=== PATIENT | male | born 1960 | race Caucasian/White ===

== ENCOUNTER 2020-03-11 13:43 | Inpatient (IN) | payer MEDICARE, OTHER ==
[~2020-03-11] VITALS: Ht 167.6 cm; Wt 87.1 kg
[2020-03-11] MEDS ORDERED: ACETAMINOPHEN 325 MG TABLET PO PRN (14:30)
[2020-03-11] MEDS ORDERED: BLOOD SUGAR DIAGNOSTIC 1 EACH STRIP IN ONE (14:30)
[2020-03-11] MEDS ORDERED: LORAZEPAM 0.5 MG TABLET PO PRN (14:30)
[2020-03-11] MEDS ORDERED: TEMAZEPAM 7.5 MG CAPSULE PO PRN (14:30)
[2020-03-11] MEDS ORDERED: MAG HYDROX/AL HYDROX/SIMETH 30 ML UDC PO PRN (14:30)
[2020-03-11 14:48] VITALS: BP 130/84
[2020-03-11] MEDS ORDERED: GABA-534 PO (14:57)
--- NOTE | 2020-03-11 15:00 | NUR ---
GPS ADMISSION NOTE: [facility] ARRIVED ON THIS UNIT AT 1400 VIA WHEELCHAIR WITH EMT ESCORT. PATIENT ADMITTED ON A 5150 HOLD FOR DTO,DTS PER HOLD PATIENT REPORTING THAT HE HE NEEDS TO BE "SENT TO [facility]"CURRENTLY NOT TAKING ANY MEDICATIONS , UPON FACE TO FACE ASSESSMENT PATIENT IS CURRENTLY LYING IN BED AWAKE,A/OX3 HAS NO S/S OR COMPLAINTS OF PAIN. UNKEPT DISHEVELED ADMIT HEARING VOICES AND SEEING THING. PATIENT IS DISPLAYING NO S/S OF APPARENT DISTRESS. PATIENT BREATHING IS UNLABORED WITH EQUAL RISE AND FALL OF THE CHEST. PATIENT IS ALERT AND ORIENTATED X 3 ON ROOM AIR. PATIENT ASSISTED WITH TURING AND REPOSITIONING Q2HR AND PRN FOR COMFORT AND CIRCULATION. PATIENT HAS NO NEEDS AT THIS TIME. PATIENT IS NOTED TO BEING DELUSIONAL, DISHEVELED, DISORGANIZED, GRANDIOSE, COOPERATIVE, AND NEEDS REDIRECTION. PATIENT DENIES SUICIDE IDEATIONS AND HOMICIDAL IDEATIONS AT THIS TIME. PATIENT IS UNDER THE PSYCHIATRIC CARE OF DR. GALLOWAY AND THE MEDICAL CARE OF DR JOLLY PATIENT BELONGINGS WERE INVENTORIED AND CHECKED FOR CONTRABAND. ALL CONTRABAND REMOVED AND STORED IN PATIENT HALLWAY LOCKER. PATIENT ADVANCED DIRECTIVES PREFERENCE, IMMUNIZATIONS QUESTIONER COMPLETED. SKIN ASSESSMENT DONE , PATIENTS RIGHTS HANDBOOK, PATIENT STATED NOT TO NOTIFIED ANYONE OF ADMISSION . PATIENT EDUCATED ON THE USE OF THE CALL AMBRIZ. PATIENT BED SIDE RAILS ARE UP X 2 FOR SAFETY. PATIENT BED IS LOCKED, LOW AND I WILL CONTINUE TO MONITOR THIS PATIENT Q 15 MIN WITH THE HELP OF STAFF TO MAINTAIN SAFETY.
[2020-03-11 16:00] VITALS: BP 120/66
[2020-03-11] MEDS ORDERED: NICO-676 TD (16:12)
[2020-03-11 20:03] VITALS: BP 129/71
[2020-03-11] MEDS: BENZTROPINE MESYLATE (1 MG) 1 MG TABLET PO SCH (20:40)
[2020-03-11] MEDS: DIVALPROEX SODIUM 250 MG TABLET.DR PO SCH (20:40)
[2020-03-11] MEDS: clonazePAM 0.5 MG TABLET PO SCH (20:40)
[2020-03-11] MEDS: HALOPERIDOL 5 MG TABLET PO SCH (20:40)
[2020-03-11] MEDS: TRAZODONE 50 MG TABLET PO SCH (22:03)
[2020-03-12] MEDS: MAGNESIUM HYDROXIDE 30 ML UDC PO PRN ×2 (06:49→21:22)
--- NOTE | 2020-03-12 06:49 | NUR ---
GPS RN NOTE: CONSTIPATION PT. C/O OF CONSTIPATION. ADMINISTERED MILK OF MAGNESIA 30 ML PO PRN ORDERED. WILL CONTINUE TO MONITOR FOR SAFETY AND BEHAVIOR
[2020-03-12 08:00] VITALS: BP 126/82
[2020-03-12 08:05] LABS: ALBUMIN 3.4 g/dL (3.4-5.0); BILIRUBIN,TOTAL 0.4 mg/dL (0.2-1.0); CALCIUM, SERUM 9.6 mg/dL (8.5-10.1); CREATININE 0.9 mg/dL (0.6-1.3); POTASSIUM 4.1 mmol/L (3.5-5.1); TOTAL PROTEIN, SERUM 8.7 g/dL (6.4-8.2)
[2020-03-12 08:34] LABS: CHOLESTEROL 159 mg/dL (<200); HDL CHOLESTEROL 28 mg/dL (40-60); LDL 118 mg/dL (0-99); TRIGLYCERIDES 129 mg/dL (30-150)
[2020-03-12] MEDS: clonazePAM 0.5 MG TABLET PO SCH ×2 (08:44→17:00)
[2020-03-12] MEDS: DIVALPROEX SODIUM 250 MG TABLET.DR PO SCH ×3 (08:44→17:00)
[2020-03-12] MEDS: NICOTINE PATCH (14MG) 14 MG PATCH.TD24 TD SCH (08:44)
[2020-03-12] MEDS: HALOPERIDOL 5 MG TABLET PO SCH ×3 (08:44→17:00)
[2020-03-12] MEDS: BENZTROPINE MESYLATE (1 MG) 1 MG TABLET PO SCH ×3 (08:44→17:00)
--- NOTE | 2020-03-12 08:45 | NUR ---
WOUND CARE CONSULT: PT ADAMANTLY REFUSED SKIN ASSESSMENT. PT NOTED TO BE AGITATED. CURRENT SIRENA SCORE IS 18. WILL SEE PRN.
--- NOTE | 2020-03-12 11:44 | NUR ---
INITIAL DISCHARGE PLAN: Pt wishes to return home [address] [facility] [address]. SW will help form a safe and proper discharge in collaboration with .
[2020-03-12] MEDS: GABAPENTIN 300 MG CAPSULE PO PRN (12:54)
--- NOTE | 2020-03-12 12:54 | NUR ---
RN NOTE :PATIENT C/O ANXIETY MEDICATED WITH ATIVAN 1MG X1 WILL CONTINUE TO MONITOR.
--- NOTE | 2020-03-12 14:44 | NUR ---
INDIVIDUAL INTERVENTION: This SW met patient at bedside. However, the patient was in a position and pt did not engage in conversation with SW. Pt will be invited to participate in the next therapeutic milieu.
[2020-03-12] MEDS ORDERED: POLYETHYLENE GLYCOL 3350 17 GM POWD.PACK PO ONE (15:30)
[2020-03-12] MEDS: METFORMIN 500 MG TABLET PO SCH (17:00)
[2020-03-12 20:26] VITALS: BP 142/61
[2020-03-12] MEDS: TRAZODONE 50 MG TABLET PO SCH (21:16)
--- NOTE | 2020-03-12 21:22 | NUR ---
GPS RN NOTE: CONSTIPATION PT. C/O OF UNABLE CONSTIPATION. ADMINISTERED MILK OF MAGNESIA 30 ML PRN ORDERED. WILL CONTINUE TO MONITOR FOR SAFETY AND BEHAVIOR
[2020-03-13] MEDS ORDERED: MAGNESIUM CITRATE 296 ML BOTTLE PO ONE (06:00)
[2020-03-13 08:00] VITALS: BP 122/74
[2020-03-13] MEDS: clonazePAM 0.5 MG TABLET PO SCH ×2 (08:10→16:55)
[2020-03-13] MEDS: DIVALPROEX SODIUM 250 MG TABLET.DR PO SCH ×3 (08:10→16:55)
[2020-03-13] MEDS: NICOTINE PATCH (14MG) 14 MG PATCH.TD24 TD SCH (08:11)
[2020-03-13] MEDS: HALOPERIDOL 5 MG TABLET PO SCH ×3 (08:11→16:55)
[2020-03-13] MEDS: METFORMIN 500 MG TABLET PO SCH ×2 (08:11→16:56)
[2020-03-13] MEDS: BENZTROPINE MESYLATE (1 MG) 1 MG TABLET PO SCH ×3 (08:11→16:55)
[2020-03-13] MEDS: METHYLPHENIDATE HCL (5MG) 5 MG TABLET PO SCH (10:05)
[2020-03-13 16:00] VITALS: BP 100/54
--- NOTE | 2020-03-13 16:27 | NUR ---
INDIVIDUAL INTERVENTION: This SW met patient at bedside. However, the patient was in a position with his eyes closed and pt did not engage in conversation with SW. Pt will be invited to participate in the next therapeutic milieu.
[2020-03-13 20:27] VITALS: BP 115/73
[2020-03-13] MEDS: TRAZODONE 50 MG TABLET PO SCH (21:45)
[2020-03-14 08:00] VITALS: BP 130/62
[2020-03-14] MEDS: GABAPENTIN 300 MG CAPSULE PO PRN (08:52)
[2020-03-14] MEDS: HALOPERIDOL 5 MG TABLET PO SCH ×3 (08:52→22:12)
[2020-03-14] MEDS: BENZTROPINE MESYLATE (1 MG) 1 MG TABLET PO SCH ×3 (08:52→21:28)
[2020-03-14] MEDS: METHYLPHENIDATE HCL (5MG) 5 MG TABLET PO SCH (08:52)
[2020-03-14] MEDS: METFORMIN 500 MG TABLET PO SCH ×2 (08:52→16:33)
[2020-03-14] MEDS: clonazePAM 0.5 MG TABLET PO SCH ×2 (08:52→16:33)
[2020-03-14] MEDS: DIVALPROEX SODIUM 250 MG TABLET.DR PO SCH ×3 (08:52→16:33)
[2020-03-14] MEDS: NICOTINE PATCH (14MG) 14 MG PATCH.TD24 TD SCH (08:53)
[2020-03-14] MEDS: LACTULOSE 10 G/15 ML UDC (PYXIS) PO PRN ×2 (08:53→20:48)
--- NOTE | 2020-03-14 09:20 | NUR ---
WOUND CARE CONSULT: PT AGREED TO HAVE RT SECOND FINGER SKIN ASSESSMENT DONE. PT NOTED TO HAVE RAISED ABRASION TO FINGER WHICH IS TENDER, PRESENT ON ADMISSION. RECOMMENDATIONS MADE FOR WOUND CARE. DISCUSSED WITH NURSING STAFF. DR RIK EM NOTIFIED FOR SURGICAL CONSULT. WILL SEE PRN. PT IS AMBULATORY AND CONTINENT. IN AGREEMENT WITH PLAN OF CARE. Addendum: 03/14/20 at 921 by DREW BLACKMANDNU Amended: Links added. Addendum: 03/14/20 at 2106 by PETROS ANTOINE RN GPS RN NOTES: PT REPORTS CONSTIPATION, LACTULOSE 30ML GIVEN PO AT 2049 ORDERED. PT WAS SEEN BY DR SHAWN EM BECAUSE PT HAS RIGHT MIDDLE FINGER PAIN DUE TO UNKNOWN GROWTH, AWAITING ORDER FOR X-RAY. PT ALSO COMPLAINED OF GENERALIZED BODY RASH THAT HAS BEEN ON GOING FOR ABOUT 2 YEARS. WILL CONTINUE TO MONITOR AND FOLLOW UP.
[2020-03-14] MEDS: NEOMY SULF/BACITRAC ZN/POLY 15 GM TUBE TP SCH ×2 (12:34→16:34)
[2020-03-14 16:00] VITALS: BP 122/78
[2020-03-14] MEDS ORDERED: HALOPERIDOL 1 MG TABLET PO SCH (17:00)
[2020-03-14] MEDS: TRAZODONE 50 MG TABLET PO SCH (22:12)
[2020-03-15 00:06] VITALS: BP 134/72
[2020-03-15 08:00] VITALS: BP 112/67
[2020-03-15] MEDS: METFORMIN 500 MG TABLET PO SCH ×2 (08:18→16:31)
[2020-03-15] MEDS: HALOPERIDOL 5 MG TABLET PO SCH ×3 (08:19→21:59)
[2020-03-15] MEDS: clonazePAM 0.5 MG TABLET PO SCH ×2 (08:19→16:31)
[2020-03-15] MEDS: BENZTROPINE MESYLATE (1 MG) 1 MG TABLET PO SCH ×3 (08:19→21:59)
[2020-03-15] MEDS: GABAPENTIN 300 MG CAPSULE PO PRN (08:19)
[2020-03-15] MEDS: METHYLPHENIDATE HCL (5MG) 5 MG TABLET PO SCH (08:19)
[2020-03-15] MEDS: DIVALPROEX SODIUM 250 MG TABLET.DR PO SCH ×3 (08:19→16:31)
[2020-03-15] MEDS: NEOMY SULF/BACITRAC ZN/POLY 15 GM TUBE TP SCH ×2 (08:20→16:31)
[2020-03-15] MEDS: NICOTINE PATCH (14MG) 14 MG PATCH.TD24 TD SCH (08:21)
[2020-03-15] MEDS ORDERED: BENZTROPINE MESYLATE (1 MG) 1 MG TABLET PO SCH (09:00)
[2020-03-15] MEDS: LACTULOSE 10 G/15 ML UDC (PYXIS) PO PRN (13:14)
[2020-03-15 16:00] VITALS: BP 108/75
[2020-03-15 20:29] VITALS: BP 124/70
[2020-03-15] MEDS: TRAZODONE 50 MG TABLET PO SCH (21:59)
[2020-03-16 08:00] VITALS: BP 119/74
[2020-03-16] MEDS: BENZTROPINE MESYLATE (1 MG) 1 MG TABLET PO SCH ×3 (08:30→20:17)
[2020-03-16] MEDS: clonazePAM 0.5 MG TABLET PO SCH ×2 (08:30→16:33)
[2020-03-16] MEDS: NICOTINE PATCH (14MG) 14 MG PATCH.TD24 TD SCH (08:30)
[2020-03-16] MEDS: METFORMIN 500 MG TABLET PO SCH ×2 (08:30→16:33)
[2020-03-16] MEDS: METHYLPHENIDATE HCL (5MG) 5 MG TABLET PO SCH (08:30)
[2020-03-16] MEDS: DIVALPROEX SODIUM 250 MG TABLET.DR PO SCH ×3 (08:30→16:33)
[2020-03-16] MEDS: HALOPERIDOL 5 MG TABLET PO SCH ×3 (08:30→21:07)
[2020-03-16] MEDS: NEOMY SULF/BACITRAC ZN/POLY 15 GM TUBE TP SCH ×2 (08:45→16:48)
--- NOTE | 2020-03-16 09:10 | NUR ---
GPS RN NOTE: PATIENT RESTING IN THE BED AWAKE, ALERT, AMBULATORY. ISOLATIVE,CALM AT THIS TIME .NO ACUTE DISTRESS NOTED. COMPLIANT WITH AM MEDICATIONS.DENIES SI/HI ALL NEEDS ATTENDED AND ANTICIPATED. WILL CONTINUE MONITORING Q15 MINS. FOR SAFETY AND BEHAVIOR.
[2020-03-16] MEDS ORDERED: DEXTROSE 50%-WATER 50 ML DISP.SYRIN IV PRN (10:00)
[2020-03-16] MEDS: BLOOD SUGAR DIAGNOSTIC 1 EACH STRIP IN SCH ×3 (11:34→21:08)
[2020-03-16] MEDS: LACTULOSE 10 G/15 ML UDC (PYXIS) PO PRN (12:08)
[2020-03-16 16:00] VITALS: BP 147/84
[2020-03-16 20:19] VITALS: BP 120/70
[2020-03-16] MEDS: TRAZODONE 50 MG TABLET PO SCH (21:07)
[2020-03-16] MEDS: INSULIN REGULAR, HUMAN 100 UNIT/ML 3 ML VIAL SQ PRN (21:09)
[2020-03-17] MEDS: BLOOD SUGAR DIAGNOSTIC 1 EACH STRIP IN SCH ×4 (07:23→21:46)
[2020-03-17] MEDS: INSULIN REGULAR, HUMAN 100 UNIT/ML 3 ML VIAL SQ PRN ×3 (07:40→21:47)
[2020-03-17 08:00] VITALS: BP 139/71
[2020-03-17] MEDS: clonazePAM 0.5 MG TABLET PO SCH ×2 (08:33→16:40)
[2020-03-17] MEDS: NICOTINE PATCH (14MG) 14 MG PATCH.TD24 TD SCH (08:33)
[2020-03-17] MEDS: METFORMIN 500 MG TABLET PO SCH ×2 (08:33→16:40)
[2020-03-17] MEDS: METHYLPHENIDATE HCL (5MG) 5 MG TABLET PO SCH (08:33)
[2020-03-17] MEDS: BENZTROPINE MESYLATE (1 MG) 1 MG TABLET PO SCH ×3 (08:33→16:40)
[2020-03-17] MEDS: DIVALPROEX SODIUM 250 MG TABLET.DR PO SCH ×2 (08:33→12:49)
[2020-03-17] MEDS: HALOPERIDOL 5 MG TABLET PO SCH ×3 (08:33→16:40)
[2020-03-17] MEDS: NEOMY SULF/BACITRAC ZN/POLY 15 GM TUBE TP SCH ×2 (08:34→16:41)
--- NOTE | 2020-03-17 09:00 | NUR ---
RN NOTE- PT IN BED AND AMBULATING ON UNIT, POOR EYE CONTACT THOUGH IONTERACTIVE. INITIATES CONVERSATION W THIS RN, GUARDED PARANOIA PRESENT, DENIES ALL PO INTAKE GOOD MED COMPLIANT NO BEHAVIORAL ISSUES FOCUS ON COLONOSCOPY APPT HE HAD CANCELLED AND CONSTIPATION ISSUES. LAST BM YESTERDAY
--- NOTE | 2020-03-17 14:50 | NUR ---
GROUP THERAPY: SW encouraged pt to attend group therapy on this present day to discuss his discharge plan. Pt is focused on discharged and asked SW when he will be discharged. SW informed him that the MD has not given a discharge order and pt then stated, "I don't want to go to the group." Pt refused to attend group and refused to engage in further conversation.
[2020-03-17 16:00] VITALS: BP 121/76
[2020-03-17 20:51] VITALS: BP 97/48
[2020-03-17 21:43] VITALS: BP 115/62
[2020-03-17] MEDS: DIVALPROEX SODIUM 500 MG TABLET.DR PO SCH (21:44)
[2020-03-17] MEDS: TRAZODONE 50 MG TABLET PO SCH (21:44)
--- NOTE | 2020-03-17 21:49 | NUR ---
GPS RN NOTES: ACCU CHECK DONE WITH BLOOD SUGAR 96. PER SLIDING SCALE, NO INSULIN NEEDED. CONTINUE TO MONITOR.
--- NOTE | 2020-03-18 05:38 | NUR ---
GPS RN NOTES: PAIN PT C/O OF SHOULDER PAIN. PT REQUESTED TYLENOL. VITALS CHECKED WNL. OFFERED TYLENOL 650 MG PO PRN ORDERED. PT AGREED AND TOLERATED MEDICATION WELL. CONTINUE TO MONITOR
[2020-03-18] MEDS: BLOOD SUGAR DIAGNOSTIC 1 EACH STRIP IN SCH ×4 (07:59→21:20)
[2020-03-18 08:00] VITALS: BP 113/64
[2020-03-18] MEDS: METHYLPHENIDATE HCL (5MG) 5 MG TABLET PO SCH (08:39)
[2020-03-18] MEDS: NICOTINE PATCH (14MG) 14 MG PATCH.TD24 TD SCH (08:39)
[2020-03-18] MEDS: clonazePAM 0.5 MG TABLET PO SCH ×2 (08:39→16:59)
[2020-03-18] MEDS: METFORMIN 500 MG TABLET PO SCH ×2 (08:40→16:59)
[2020-03-18] MEDS: NEOMY SULF/BACITRAC ZN/POLY 15 GM TUBE TP SCH ×2 (08:40→17:04)
[2020-03-18] MEDS: BENZTROPINE MESYLATE (1 MG) 1 MG TABLET PO SCH ×3 (08:40→16:59)
[2020-03-18] MEDS: DIVALPROEX SODIUM 250 MG TABLET.DR PO SCH ×2 (08:40→12:24)
[2020-03-18] MEDS: HALOPERIDOL 5 MG TABLET PO SCH ×3 (08:40→16:59)
--- NOTE | 2020-03-18 09:00 | NUR ---
RN NOTE- PT CALM QUIET. ISOLATIVE TO ROOM LESS INTERACTIVE AND LESS INITIATION. DENIES SI HI AH VH PO INTAKE GOOD THIS MORNING MED COMPLIANT
--- NOTE | 2020-03-18 10:48 | NUR ---
RN NOTE- PT W ABRASION ON RT HAND ERYTHEMATOUS AND CRUSTED. PT C/O PAIN. TOPICAL ABX OINTMENT BEING APPLIED BUT APPEARS TO BE WORSENING. ASSOCIATE EDITOR NOTIFIED FOR REEVALUATION
[2020-03-18] MEDS: LACTULOSE 10 G/15 ML UDC (PYXIS) PO PRN (12:23)
[2020-03-18] MEDS: INSULIN REGULAR, HUMAN 100 UNIT/ML 3 ML VIAL SQ PRN ×3 (12:28→21:21)
--- NOTE | 2020-03-18 14:56 | NUR ---
Individual Counseling: This SW met patient in activity room to facilitate individual Counseling regarding Support Systems. The patient was sleeping and not easily roused by verbal cues. Patient will be invited to attend the next therapeutic milieu.
[2020-03-18 16:00] VITALS: BP 107/71
--- NOTE | 2020-03-18 19:25 | NUR ---
GPS RN NOTES RECEIVED PATIENT FROM MORNING SHIFT, ALERT AND ORIENTED X 3 WITH FLAT AFFECT, ISOLATIVE AND WITHDRAWN. VERBALLY RESPONSIVE AND ABLE TO FOLLOW DIRECTIONS. BREATHING REGULAR AND UNLABORED ON ROOM. DENIES SUICIDAL IDEATION OR HALLUCINATION. NO COMPLAINTS OF PAIN/DISCOMFORT REPORTED AT THIS TIME. BED LOW AND LOCKED ON SEMI FOWLERS POSITION. WILL CLOSELY MONITOR FOR SAFETY AND BEHAVIOR.
[2020-03-18 20:00] VITALS: BP 112/66
[2020-03-18] MEDS: GABAPENTIN 300 MG CAPSULE PO PRN (20:05)
[2020-03-18 20:07] VITALS: BP 112/66
--- NOTE | 2020-03-18 20:10 | NUR ---
GPS RN NOTES COMPLAINED OF "TINGLING PAIN" ON HIS HANDS. NEURONTIN 300MG GIVEN BY MOUTH. NON-PHARMACOLOGICAL INTERVENTIONS PROVIDED. WILL CONTINUE TO MONITOR.
[2020-03-18] MEDS: DIVALPROEX SODIUM 500 MG TABLET.DR PO SCH (21:19)
[2020-03-18] MEDS: TRAZODONE 50 MG TABLET PO SCH (21:20)
[2020-03-19 08:00] VITALS: BP 108/67
[2020-03-19] MEDS: BLOOD SUGAR DIAGNOSTIC 1 EACH STRIP IN SCH ×4 (08:25→21:40)
[2020-03-19] MEDS: NEOMY SULF/BACITRAC ZN/POLY 15 GM TUBE TP SCH ×2 (09:07→17:41)
[2020-03-19] MEDS: NICOTINE PATCH (14MG) 14 MG PATCH.TD24 TD SCH (09:13)
[2020-03-19] MEDS: METHYLPHENIDATE HCL (5MG) 5 MG TABLET PO SCH (09:13)
[2020-03-19] MEDS: clonazePAM 0.5 MG TABLET PO SCH ×2 (09:13→17:40)
[2020-03-19] MEDS: GABAPENTIN 300 MG CAPSULE PO PRN (09:14)
[2020-03-19] MEDS: HALOPERIDOL 5 MG TABLET PO SCH ×3 (09:14→17:40)
[2020-03-19] MEDS: DIVALPROEX SODIUM 250 MG TABLET.DR PO SCH ×2 (09:14→12:07)
[2020-03-19] MEDS: METFORMIN 500 MG TABLET PO SCH ×2 (09:14→17:40)
[2020-03-19] MEDS: BENZTROPINE MESYLATE (1 MG) 1 MG TABLET PO SCH ×3 (09:14→17:40)
--- NOTE | 2020-03-19 09:17 | NUR ---
WOUND CARE CONSULT: RE-EVALUATION OF RT 2ND FINGER WHICH IS NOTED TO HAVE REDNESS, RAISED AREA WITH DRIED RED/BROWN DRAINAGE AND TENDERNESS, PRESENT ON ADMISSION. SURGEON ON CASE. MSG LEFT FOR DR RIK EM TO RE-EVALUATE FINGER.
[2020-03-19] MEDS: INSULIN REGULAR, HUMAN 100 UNIT/ML 3 ML VIAL SQ PRN ×3 (09:18→18:01)
[2020-03-19 16:00] VITALS: BP 128/68
[2020-03-19] MEDS: DIVALPROEX SODIUM 500 MG TABLET.DR PO SCH (21:19)
[2020-03-19] MEDS: TRAZODONE 50 MG TABLET PO SCH (21:19)
[2020-03-20] MEDS: MAGNESIUM HYDROXIDE 30 ML UDC PO PRN (06:04)
--- NOTE | 2020-03-20 06:04 | NUR ---
GPS RN NOTE: CONSTIPATION PT. C/O OF CONSTIPATION. ADMINISTERED MILK OF MAGNESIA 30 ML PO PRN ORDERED. WILL CONTINUE TO MONITOR FOR SAFETY AND BEHAVIOR
[2020-03-20] MEDS: BLOOD SUGAR DIAGNOSTIC 1 EACH STRIP IN SCH ×4 (07:30→21:15)
--- NOTE | 2020-03-20 07:36 | NUR ---
GPS/RN-NOTES PATIENT REFUSED ACCU-CHECK DESPITE EXPLANATIONS RISK AND BENEFITS. OFFERED X3
[2020-03-20 08:00] VITALS: BP 113/58
[2020-03-20] MEDS: NEOMY SULF/BACITRAC ZN/POLY 15 GM TUBE TP SCH ×2 (09:00→17:09)
[2020-03-20] MEDS: METFORMIN 500 MG TABLET PO SCH ×2 (09:19→17:08)
[2020-03-20] MEDS: METHYLPHENIDATE HCL (5MG) 5 MG TABLET PO SCH (09:19)
[2020-03-20] MEDS: clonazePAM 0.5 MG TABLET PO SCH ×2 (09:19→17:08)
[2020-03-20] MEDS: NICOTINE PATCH (14MG) 14 MG PATCH.TD24 TD SCH (09:19)
[2020-03-20] MEDS: HALOPERIDOL 5 MG TABLET PO SCH ×3 (09:19→17:08)
[2020-03-20] MEDS: BENZTROPINE MESYLATE (1 MG) 1 MG TABLET PO SCH ×3 (09:19→17:08)
[2020-03-20] MEDS: DIVALPROEX SODIUM 250 MG TABLET.DR PO SCH ×2 (09:19→12:05)
--- NOTE | 2020-03-20 10:16 | NUR ---
County Contact: SW called [facility] and spoke to Krissy ([phone]) who received the pts information and stated that transportation will be arranged for tomorrow. She stated that she will call the SW with a time once the schedule is completed.
--- NOTE | 2020-03-20 14:27 | NUR ---
Group Note/Individual Session: SW encouraged the pt to participate in group therapy and the pt was in the activities room but no one else was participating in group. SW spoke to the pt about his pending discharge for the following day and he stated that he has been wanting to return to his home and felt that his stay at the hospital was unnecessary. SW stated that he has shown improvement through the use of medications and expressed that would not have been possible if he did not get admitted. Pt stated that the SW was right and that he feels like he will be safe in his home and if he is not down the line the pt states that he knows what to do.
[2020-03-20 16:00] VITALS: BP 115/76
[2020-03-20] MEDS: INSULIN REGULAR, HUMAN 100 UNIT/ML 3 ML VIAL SQ PRN (18:18)
[2020-03-20 20:00] VITALS: BP 113/74
--- NOTE | 2020-03-20 20:00 | NUR ---
GPS/RN OPENING NOTES RECEIVED PATIENT , ALERT, ORIENTED, AMBULATORY, ABLE TO VERBALIZED NEEDS, REQUESTING FOR SOME INFORMATION REGARDING DISCHARGE AND MEDICATION LIST UPON DISCHARGE, DISCUSSED THAT IT WILL PROVIDED TO HIM UPON DISCHARGE FOR MEDICATION LIST. RECEIVED ENDORSEMENT FROM AM RN FOR BESS. TO MONITOR PATIENT AND CONTINUE CARE.
[2020-03-20 20:40] VITALS: BP 113/74
[2020-03-20] MEDS: DIVALPROEX SODIUM 500 MG TABLET.DR PO SCH (21:14)
[2020-03-20] MEDS: TRAZODONE 50 MG TABLET PO SCH (21:14)
--- NOTE | 2020-03-20 21:55 | NUR ---
GPS/RN NOTES BLOOD SUGAR CHECK AT 135. PATIENT HAD SNACKS AND REPORTED WILL GO BACK TO SLEEP. NO COVERAGE GIVEN PER PATIENT REQUEST.
[2020-03-21] MEDS: BLOOD SUGAR DIAGNOSTIC 1 EACH STRIP IN SCH ×2 (07:30→12:00)
[2020-03-21 08:00] VITALS: BP 148/53
[2020-03-21] MEDS: clonazePAM 0.5 MG TABLET PO SCH (08:12)
[2020-03-21] MEDS: METHYLPHENIDATE HCL (5MG) 5 MG TABLET PO SCH (08:13)
[2020-03-21] MEDS: HALOPERIDOL 5 MG TABLET PO SCH ×2 (08:13→13:23)
[2020-03-21] MEDS: GABAPENTIN 300 MG CAPSULE PO PRN (08:13)
[2020-03-21] MEDS: DIVALPROEX SODIUM 250 MG TABLET.DR PO SCH ×2 (08:13→13:23)
[2020-03-21] MEDS: BENZTROPINE MESYLATE (1 MG) 1 MG TABLET PO SCH ×2 (08:13→13:23)
[2020-03-21] MEDS: METFORMIN 500 MG TABLET PO SCH (08:13)
[2020-03-21] MEDS: NICOTINE PATCH (14MG) 14 MG PATCH.TD24 TD SCH (08:13)
[2020-03-21] MEDS: NEOMY SULF/BACITRAC ZN/POLY 15 GM TUBE TP SCH (08:17)
--- NOTE | 2020-03-21 10:08 | NUR ---
Dr. Burr gave an order to D/C hold and D/C home and to follow up with the psych and medical doctors.
--- NOTE | 2020-03-21 12:57 | NUR ---
Discharge Note: Pt was discharged to his home located at [address] [place] [phone]; ([phone]). Pt was via County transportation around 2:45pm. There was no one to notify regarding this discharge. Upon discharge, the pt appears to be in a euthymic mood and presents with a calm affect. Pt appears to be alert and oriented x4 (time, place, self and situation). Pt appears to be disheveled, distressed, and ungroomed. Pt denied visual/auditory hallucinations and denied suicidal/homicidal ideation. SW provided the pt with substance abuse referrals that are listed below. Pt will be under the care of psychiatrist, [facility] located at [address] [place] [phone]; ; fax: and will be under the care of paper inserter, Dr. Brain Lua MD located at [address] [place] [phone]; .
--- NOTE | 2020-03-21 13:58 | NUR ---
gps/rn pt discharged home no si or hi at the time of discharge, prescriptions and exit care instructions provided. refused pictures on discharge. ambulatory, property returned. vss. left via private car.
== END 2020-03-21 13:45 | disposition home or self-care (01) | DRG 885 ==
LOC: GPS 13:43
PROVIDERS: ADMIT Psychiatry & Neurology Psychiatry; ATTEND Internal Medicine
DX: F25.9 Schizoaffective disorder, unspecified (principal); F17.200 Nicotine dependence, unspecified, uncomplicated; E11.9 Type 2 diabetes mellitus without complications; G62.9 Polyneuropathy, unspecified; F90.9 Attention-deficit hyperactivity disorder, unspecified type; F17.210 Nicotine dependence, cigarettes, uncomplicated; F32.9 Major depressive disorder, single episode, unspecified; K59.00 Constipation, unspecified; Z91.5 Personal history of self-harm; R53.1 Weakness; F41.9 Anxiety disorder, unspecified; Z73.6 Limitation of activities due to disability; Z71.6 Tobacco abuse counseling; R21 Rash and other nonspecific skin eruption; M13.841 Other specified arthritis, right hand; Z68.31 Body mass index [BMI] 31.0-31.9, adult; Z79.84 Long term (current) use of oral hypoglycemic drugs
CPT/HCPCS: 36415; 73130-TC; 80053-TC; 80061-TC; 80164-TC; 82962-TC; 87081-TC; J1815